=== PATIENT | female | born 1950 | race Two or more races ===

== ENCOUNTER 2023-06-12 20:54 | Emergency (ER) | payer MEDICARE, MEDICAID ==
[~2023-06-12] VITALS: Ht 154.9 cm; Wt 90.0 kg
[2023-06-12 21:47] LABS: Basophils # (auto) 0.1 10 ^3/uL (0-0.2); Basophils % (auto) 0.8 % (0.0-2.0); Eosinophils # (auto) 0.3 10 ^3/uL (0-0.8); Eosinophils % (auto) 3.1 % (0.0-7.0); Hematocrit 43.4 % (36.0-46.0); Hemoglobin 14.3 g/dL (12.2-16.2); Lymphocytes # (auto) 4.4 10 ^3/uL (0.4-5.4); Lymphocytes % (auto) 44.5 % (10.0-50.0); Mean Corpuscular Hemoglobin 29.9 pg (28.0-32.0); Mean Corpuscular Hgb Conc. 32.8 g/dL (32.0-36.0); Mean Corpuscular Volume 90.9 fL (80.0-100.0); Monocytes # (auto) 0.7 10 ^3/uL (0-1.3); Monocytes % (auto) 7.1 % (0.0-12.0); Neutrophils # (auto) 4.4 10 ^3/uL (1.6-8.6); Neutrophils % (auto) 44.5 % (37.0-80.0); Nucleated Red Blood Cells % 0.1 %; Red Blood Cells 4.78 10^6/uL (4.0-5.20)
[2023-06-12 21:56] LABS: Alanine Aminotransferase 37 U/L (7-40); Albumin 4.4 g/dL (3.2-4.8); Alkaline Phosphatase 100 U/L (46-116); Anion Gap 10 (5-15); Aspartate Aminotransferase 42 U/L (13-40); Bilirubin, Total 0.3 mg/dL (0.2-1.0); Blood Alcohol 254.5 mg/dL (<10); Calcium 9.1 mg/dL (8.5-10.1); Carbon Dioxide 23 mmol/L (20-30); Chloride 101 mmol/L (98-107); Glucose 82 mg/dL (74-106); Potassium 4.2 mmol/L (3.5-5.1); Sodium 134 mmol/L (136-145)
[2023-06-12 21:57] LABS: Total Protein 7.4 g/dL (5.7-8.2)
[2023-06-12 21:59] LABS: BUN/Creatinine Ratio 6.6 (10.0-20.0); Blood Urea Nitrogen < 5 mg/dL (9-23)
[2023-06-12 22:08] LABS: Urine Bacteria FEW /hpf (None Seen); Urine Blood Negative /uL (Negative); Urine Clarity Clear (Clear); Urine Color Colorless (Yellow); Urine Protein, UAD Negative (Negative); Urine Specific Gravity 1.003 (1.001-1.035); Urine Urobilinogen Normal (Negative); Urine WBC <1 /hpf (0 - 5)
[2023-06-12 22:10] LABS: Amphetamine Screen, Urine Neg (NEGATIVE); Barbiturate Scree,Urine Neg (NEGATIVE); Benzodiazephine Screen, Urine Neg (NEGATIVE); Cocaine Screen, Urine Neg (NEGATIVE)
[2023-06-12 22:12] LABS: Cannabinoid Screen, Urine Neg (NEGATIVE); Opiate Scree,Urine Neg (NEGATIVE); Phencyclidine Screen, Urine Neg (NEGATIVE)
[2023-06-12 22:13] LABS: INR 1.06 (0.9-1.15); Partial Thromboplastin Time 34.4 SEC (24.5-34.5); Prothrombin Time 11.1 sec (9.3-11.8)
[2023-06-13] MEDS: MECLIZINE HCL 25 MG TAB PO ONE (00:49)
[2023-06-13] MEDS: SODIUM CHLORIDE 0.9% 1,000 ML IV ONE (00:49)
[2023-06-13 01:00] VITALS: PULSE 71; RESP 13; O2SAT 94
[2023-06-13] MEDS: KETOROLAC TROMETH 30 MG/ML 1ML VIAL IV ONE (01:56)
[2023-06-13] MEDS ORDERED: ACET-1304 PO (02:03)
[2023-06-13 05:21] VITALS: BP 118/60; PULSE 76; RESP 16; TEMP 97.6; O2SAT 94
== END 2023-06-13 07:01 | disposition home or self-care (01) ==
LOC: ER 20:54 → EDBD 20:54 → ER 06-13 07:01
DX: S00.81XA Abrasion of other part of head, initial encounter (principal); M25.512 Pain in left shoulder; M25.511 Pain in right shoulder; F10.129 Alcohol abuse with intoxication, unspecified; E11.9 Type 2 diabetes mellitus without complications; Z79.899 Other long term (current) drug therapy; Z88.8 Allergy status to other drugs, medicaments and biological substances; W10.9XXA Fall (on) (from) unspecified stairs and steps, initial encounter; Y93.89 Activity, other specified; Y92.89 Other specified places as the place of occurrence of the external cause; Y99.8 Other external cause status; Y90.8 Blood alcohol level of 240 mg/100 ml or more
CPT/HCPCS: 36415; 70450; 72125; 73030; 80053; 80307; 80320; 81001; 82962; 83880; 84484; 85025; 85610; 85730; 93005; 96361; 96374; 99285; J1885; J7030; J8597